=== PATIENT | male | born 1975 | race Caucasian/White ===

== ENCOUNTER 2017-12-05 18:07 | Inpatient (IN) | payer OTHER ==
[2017-12-05 18:36] VITALS: BMI 19.6
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
[2017-12-05] MEDS ORDERED: ACETAMINOPHEN 325 MG TABLET (FP) PO PRN (21:59)
[2017-12-05] MEDS ORDERED: MAGNESIUM HYDROX 2400MG/30ML ORAL SUSPENSION 30 ML CUP PO PRN (21:59)
[2017-12-05] MEDS ORDERED: chlordiazePOXIDE HCL 25 MG CAPSULE PO PRN (21:59)
[2017-12-05] MEDS ORDERED: LOPERAMIDE HCL 2 MG CAPSULE PO PRN (21:59)
[2017-12-05] MEDS ORDERED: MAGNESIUM CITRATE 300 ML BOTTLE PO PRN (21:59)
[2017-12-05] MEDS ORDERED: NICOTINE POLACRILEX 2 MG GUM BC PRN (21:59)
[2017-12-05] MEDS ORDERED: guaiFENesin/D-METHORPHAN HB 10 ML UNIT-DOSE CUPS PO PRN (21:59)
[2017-12-05] MEDS ORDERED: MAG HYDROX/AL HYDROX/SIMETH 30 ML UNIT-DOSE CUP PO PRN (21:59)
[2017-12-05] MEDS ORDERED: P-EPHED 60MG/TRIPROLIDI 2.5MG TABLET PO PRN (21:59)
[2017-12-05] MEDS ORDERED: MENTHOL/PHENOL 1 EACH UD MM PRN (21:59)
[2017-12-05] MEDS ORDERED: IBUPROFEN 400 MG TABLET (FP) PO PRN (21:59)
[2017-12-05] MEDS ORDERED: chlordiazePOXIDE HCL 25 MG CAPSULE PO SCH (23:00)
[2017-12-06] MEDS ORDERED: chlordiazePOXIDE HCL 25 MG CAPSULE PO PRN (00:37)
[2017-12-06] MEDS ORDERED: chlordiazePOXIDE HCL 25 MG CAPSULE PO ONE (01:00)
[2017-12-06] MEDS: MELATONIN 5 MG TABLETS PO PRN ×2 (02:02→22:16)
[2017-12-06] MEDS: THIAMINE HCL 100 MG TABLET (FP) PO SCH ×2 (02:08→22:15)
[2017-12-06] MEDS: chlordiazePOXIDE HCL 25 MG CAPSULE PO SCH ×4 (05:13→22:15)
[2017-12-06 10:17] LABS: ALBUMIN 3.4 g/dl (3.4-5.0); ALK PHOS 55 U/L (45-117); ANION GAP 2 MMOL/L (8-16); BILIRUBIN,TOTAL 0.8 mg/dL (0.2-1); BLOOD UREA NITROGEN 14 mg/dL (7-18); CALCIUM 8.8 mg/dL (8.5-10.1); CHLORIDE 107 mmol/L (98-107); CO2 31 mmol/L (21-32); GLUCOSE,RANDOM 95 mg/dL (74-106); HEMATOCRIT 42.6 % (35.4-49); HEMOGLOBIN 14.5 GM/dL (11.7-16.9); MCH 31.3 pg (25.7-33.7); MCHC 33.9 g/dl (32.0-35.9); MEAN CELL VOLUME 92.3 fl (80-96); MEAN PLT VOLUME 8.2 fl (7.5-11.1); PLATELET COUNT 246 K/MM3 (134-434); POTASSIUM 4.1 mmol/L (3.5-5.1); RBC 4.62 M/mm3 (4.00-5.60); RDW 12.6 % (11.9-15.9); SGOT/AST 26 U/L (15-37); SGPT/ALT 45 U/L (13-61); SODIUM 140 mmol/L (136-145); TOT PROT 6.6 g/dl (6.4-8.2); WHITE BLOOD COUNT 7.2 K/mm3 (4.0-10.0)
[2017-12-06] MEDS: PRENATAL VITAMINS W/ FOLIC ACID TABLET (FP) PO SCH (11:04)
[2017-12-06] MEDS: NICOTINE 14 MG/24 HOURS TOPICAL PATCH TD SCH (11:04)
--- NOTE | 2017-12-06 11:08 | PN ---
S CIWA - CIWA Score Nausea/Vomitin-No Nausea/No Vomiting Muscle Tremors: 4-Moderate,w/Arms Extend Anxiety: 3 Agitation: 3 Paroxysmal Sweats: 3 Orientation: 0-Oriented Tacttile Disturbances: 0-None Auditory Disturbances: 0-None Visual Disturbances: 0-None Headache: 0-None Present CIWA-Ar Total Score: 13 BHS Progress Note (SOAP) Subjective: agitation anxiety sweats interrupted sleep Objective: 12/06/17 11:03 Vital Signs Temperature 97.7 F 12/06/17 09:42 Pulse Rate 90 12/06/17 09:42 Respiratory Rate 16 12/06/17 09:42 Blood Pressure 104/70 12/06/17 09:42 O2 Sat by Pulse Oximetry (%) Laboratory Tests 12/06/17 12/06/17 07:00 07:00 WBC 7.2 RBC 4.62 Hgb 14.5 Hct 42.6 MCV 92.3 MCH 31.3 MCHC 33.9 RDW 12.6 Plt Count 246 MPV 8.2 Sodium 140 Potassium 4.1 Chloride 107 Carbon Dioxide 31 Anion Gap 2 L BUN 14 Creatinine 1.0 Creat Clearance w eGFR > 60 Random Glucose 95 Calcium 8.8 Total Bilirubin 0.8 AST 26 ALT 45 Alkaline Phosphatase 55 Total Protein 6.6 Albumin 3.4 aaox3 ambulating no acute distress Assessment: 12/06/17 11:05 withdrawal sx Plan: continue detox increase fluids
--- NOTE | 2017-12-06 13:16 | EKG ---
Test Reason : Blood Pressure : / mmHG Vent. Rate : 092 BPM Atrial Rate : 092 BPM P-R Int : 126 ms QRS Dur : 086 ms QT Int : 374 ms P-R-T Axes : 066 086 055 degrees QTc Int : 462 ms NORMAL SINUS RHYTHM NORMAL ECG NO PREVIOUS ECGS AVAILABLE Confirmed by MD CRYSTAL, MANJIT ([id number]) on 12/06/2017 1:16:23 PM Referred By: Confirmed By:MANJIT ROJAS MD
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
[2017-12-06] MEDS: MIRTAZAPINE 15 MG TABLET (FP) PO SCH (22:15)
[2017-12-06] MEDS ORDERED: chlordiazePOXIDE HCL 25 MG CAPSULE PO SCH (23:00)
[2017-12-07] MEDS: chlordiazePOXIDE HCL 25 MG CAPSULE PO SCH ×4 (05:56→23:14)
--- NOTE | 2017-12-07 10:34 | PN ---
S CIWA - CIWA Score Nausea/Vomitin-No Nausea/No Vomiting Muscle Tremors: 3 Anxiety: 2 Agitation: 3 Paroxysmal Sweats: 3 Orientation: 0-Oriented Tacttile Disturbances: 0-None Auditory Disturbances: 0-None Visual Disturbances: 0-None Headache: 0-None Present CIWA-Ar Total Score: 11 BHS Progress Note (SOAP) Subjective: sleepy sweats irritable tooth is scraping side of tounge Objective: 12/07/17 10:32 Vital Signs Temperature 97.7 F 12/07/17 10:09 Pulse Rate 93 H 12/07/17 10:09 Respiratory Rate 18 12/07/17 10:09 Blood Pressure 133/79 12/07/17 10:09 O2 Sat by Pulse Oximetry (%) Laboratory Tests 12/06/17 12/06/17 12/06/17 07:00 07:00 07:00 WBC 7.2 RBC 4.62 Hgb 14.5 Hct 42.6 MCV 92.3 MCH 31.3 MCHC 33.9 RDW 12.6 Plt Count 246 MPV 8.2 Sodium 140 Potassium 4.1 Chloride 107 Carbon Dioxide 31 Anion Gap 2 L BUN 14 Creatinine 1.0 Creat Clearance w eGFR > 60 Random Glucose 95 Calcium 8.8 Total Bilirubin 0.8 AST 26 ALT 45 Alkaline Phosphatase 55 Total Protein 6.6 Albumin 3.4 RPR Titer Nonreactive aaox3 ambulating no acute distress Assessment: 12/07/17 10:34 withdrawal sx Plan: continue detox increase fluids lidocaine s/s ordered
[2017-12-07] MEDS: PRENATAL VITAMINS W/ FOLIC ACID TABLET (FP) PO SCH (11:03)
[2017-12-07] MEDS: NICOTINE 14 MG/24 HOURS TOPICAL PATCH TD SCH (11:03)
[2017-12-07] MEDS ORDERED: LIDOCAINE VISCOUS 2% ORAL/TOP 20 ML UNIT-DOSE CUP MM PRN (11:05)
[2017-12-07] MEDS ORDERED: chlordiazePOXIDE 5 MG CAPSULE PO SCH (23:00)
[2017-12-07] MEDS: THIAMINE HCL 100 MG TABLET (FP) PO SCH (23:14)
[2017-12-07] MEDS: MIRTAZAPINE 15 MG TABLET (FP) PO SCH (23:15)
[2017-12-08] MEDS: chlordiazePOXIDE 5 MG CAPSULE PO SCH ×4 (06:23→22:30)
[2017-12-08] MEDS: PRENATAL VITAMINS W/ FOLIC ACID TABLET (FP) PO SCH (10:27)
[2017-12-08] MEDS: NICOTINE 14 MG/24 HOURS TOPICAL PATCH TD SCH (10:27)
--- NOTE | 2017-12-08 11:05 | PN ---
BHS Progress Note (SOAP) Subjective: low back pain sweats irritable Objective: 12/08/17 11:04 Vital Signs Temperature 98.1 F 12/08/17 08:11 Pulse Rate 72 12/08/17 08:11 Respiratory Rate 18 12/08/17 08:11 Blood Pressure 128/86 12/08/17 08:11 O2 Sat by Pulse Oximetry (%) aaox3 ambulating no acute distress Assessment: 12/08/17 11:04 withdrawal sx Plan: continue detox increase fluids lidocaine patch flexiril 10mg prn
[2017-12-08] MEDS ORDERED: CYCLOBENZAPRINE HCL 10 MG TABLET (FP) PO PRN (11:09)
[2017-12-08] MEDS: LIDOCAINE 5% TOPICAL PATCH TP ONE ×2 (11:20→11:24)
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
[2017-12-08] MEDS ORDERED: LIDOCAINE PATCH REMOVAL MC SCH (22:00)
[2017-12-08] MEDS: THIAMINE HCL 100 MG TABLET (FP) PO SCH (22:30)
[2017-12-08] MEDS: MELATONIN 5 MG TABLETS PO PRN (22:31)
[2017-12-08] MEDS ORDERED: chlordiazePOXIDE HCL 10 MG CAPSULE PO SCH (23:00)
[2017-12-08] MEDS: MIRTAZAPINE 15 MG TABLET (FP) PO SCH (23:31)
[2017-12-09] MEDS: chlordiazePOXIDE HCL 10 MG CAPSULE PO SCH ×2 (06:52→10:35)
[2017-12-09] MEDS ORDERED: BACITRACIN 0.9 GM PACKET TP ONE (08:31)
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
--- NOTE | 2017-12-09 09:18 | DS ---
[facility] Detox Discharge Summary Admission Date: 12/05/17 Discharge Date: 12/09/17 - History Present History: Alcohol Dependence, Cannabis Dependence, Cocaine Dependence - Physical Exam Results Vital Signs: Vital Signs Temperature 98.2 F 12/09/17 08:14 Pulse Rate 84 12/09/17 08:14 Respiratory Rate 18 12/09/17 08:14 Blood Pressure 129/78 12/09/17 08:14 O2 Sat by Pulse Oximetry (%) - Treatment Hospital Course: Detox Protocol Followed, Detoxed Safely, Responded well, Discharged Condition Good, Rehab Referral Accepted - Medication Discharge Medications: Ambulatory Orders Fluoxetine HCl [Prozac -] 10 mg PO DAILY #30 capsule 01/12/16 Mirtazapine [Remeron -] 15 mg PO HS #30 tablet 01/12/16 - Diagnosis (1) Alcohol dependence with uncomplicated withdrawal Current Visit: Yes Status: Chronic (2) Substance induced mood disorder Current Visit: Yes Status: Acute (3) Substance induced mood disorder Current Visit: Yes Status: Acute (4) Substance-induced sleep disorder Current Visit: Yes Status: Acute (5) Anxiety Current Visit: Yes Status: Chronic (6) Asthma Current Visit: Yes Status: Chronic Qualifiers: Asthma complication type: uncomplicated (7) Cannabis dependence, uncomplicated Current Visit: Yes Status: Chronic (8) Cocaine dependence, uncomplicated Current Visit: Yes Status: Chronic (9) Depression Current Visit: Yes Status: Chronic Qualifiers: Depression Type: unspecified Qualified Code(s): F32.9 - Major depressive disorder, single episode, unspecified (10) HTN (hypertension) Current Visit: Yes Status: Chronic Qualifiers: Hypertension type: unspecified Qualified Code(s): I10 - Essential (primary ) hypertension (11) Hep C w/ coma, chronic Current Visit: Yes Status: Chronic (12) Lower back pain Current Visit: Yes Status: Chronic Qualifiers: Chronicity: chronic Back pain laterality: right Sciatica presence: with sciatica Sciatica laterality: sciatica of right side Qualified Code(s): M54.41 - Lumbago with sciatica, right side; G89.29 - Other chronic pain (13) Nicotine dependence Current Visit: Yes Status: Chronic Qualifiers: Nicotine product type: cigarettes Substance use status: uncomplicated Qualified Code(s): F17.210 - Nicotine dependence, cigarettes, uncomplicated (14) Cocaine-induced mood disorder Current Visit: No Status: Acute (15) Cocaine-induced sleep disorder Current Visit: No Status: Acute (16) Weight loss Current Visit: No Status: Suspected - AMA Did Patient Leave Against Medical Advice: No ([facility])
[2017-12-09] MEDS ORDERED: LIDOCAINE 5% TOPICAL PATCH TP SCH (10:00)
[2017-12-09] MEDS: NICOTINE 14 MG/24 HOURS TOPICAL PATCH TD SCH (10:33)
[2017-12-09] MEDS: PRENATAL VITAMINS W/ FOLIC ACID TABLET (FP) PO SCH (10:34)
[2017-12-09 13:39] VITALS: BP 131/75; PULSE 100; TEMP 98.8
[2017-12-09 14:27] LABS: URINE APPEARANCE CLOUDY; URINE BILIRUBIN NEGATIVE (<2.0 mg/dL); URINE COLOR YELLOW; URINE GLUCOSE (UA) NEGATIVE (NEGATIVE); URINE KETONE NEGATIVE (NEGATIVE); URINE LEUK ESTERASE NEGATIVE (NEGATIVE); URINE NITRITE NEGATIVE (NEGATIVE); URINE PROTEIN NEGATIVE (NEGATIVE); URINE UROBILINOGEN NEGATIVE mg/dL (0.2-1.0)
== END 2017-12-09 15:38 | disposition home or self-care (01) | DRG 774 ==
LOC: YASAS 18:07 → Y6N 22:29
PROC: HZ2ZZZZ Detoxification Services for Substance Abuse Treatment (ICD-10-PCS; principal; 2017-12-05)
DX: F10.230 Alcohol dependence with withdrawal, uncomplicated (principal); F14.24 Cocaine dependence with cocaine-induced mood disorder; F14.282 Cocaine dependence with cocaine-induced sleep disorder; F12.20 Cannabis dependence, uncomplicated; F17.210 Nicotine dependence, cigarettes, uncomplicated; F32.9 Major depressive disorder, single episode, unspecified; F41.9 Anxiety disorder, unspecified; I10 Essential (primary) hypertension; J45.909 Unspecified asthma, uncomplicated; B18.2 Chronic viral hepatitis C; M54.41 Lumbago with sciatica, right side; R00.0 Tachycardia, unspecified; Z88.6 Allergy status to analgesic agent; Z87.898 Personal history of other specified conditions; Z91.5 Personal history of self-harm; T76.21XA Adult sexual abuse, suspected, initial encounter
CPT/HCPCS: 36415; 80053; 81003; 85027; 86593; 93005; 93010

== ENCOUNTER 2019-04-23 12:48 | Inpatient (IN) | payer OTHER ==
--- NOTE | 2019-04-23 13:03 | BHS.RME ---
Substance Use & Tx History - Substance Use History Alcohol Substance amount: 1 pint Frequency of use: Daily Substance route: Oral Date of Last Use: 04/23/19 (5 am) Opiates (Heroin) Substance amount: 1 gram Frequency of use: Daily Substance route: Injection (ex: intravenous or skin popping) Date of Last Use: 04/19/19 Nicotine Substance amount: 1/2 pack Frequency of use: Daily Substance route: Smoking Date of Last Use: 04/23/19 Physical/Psych/Mental Status - Behavior General Behavior: Increased activity (restlessness, agitation) Eye Contact: Normal - Cooperativeness Cooperativeness: Cooperative - Thinking Thought Processes: Tight, Logical, Goal Directed Thought content: Future oriented - Physical Health Problems Is patient presently having any pain?: No Does patient presently have any injuries (include location): No Does patient currently have a fever: No Is patient : No COWS - Scale Resting Pulse: 1= AL 81-100 Sweatin=Flushed/Facial Moisture Restless Observation: 3= Extraneous Movement Pupil Size: 2= Moderately Dilated Bone or Joint Aches: 4=Acute Joint/Muscle Pain Runny Nose/ Eye Tearin= Runny Nose/Eyes GI Upset > 30mins: 2= Nausea/Diarrhea Tremor Observation: 2= Slight Tremor Visible Yawning Observation: 1= 1-2x During Session Anxiety or Irritability: 1=Feels Anxious/Irritable Goose Flesh Skin: 3=Piloerection COWS Score: 23 CIWA Nausea/Vomitin Muscle Tremors: 3 Anxiety: 4-Mod. Anxious/Guarded Agitation: 4-Moderately Restless Paroxysmal Sweats: 4-Forehead w/Sweat Beads Orientation: 3-Disoriented Date>2 days Tacttile Disturbances: 0-None Auditory Disturbances: 0-None Visual Disturbances: 0-None Headache: 0-None Present CIWA-Ar Total Score: 21
--- NOTE | 2019-04-23 13:49 | HP ---
COWS - Scale Resting Pulse: 1= MD 81-100 Sweatin=Flushed/Facial Moisture Restless Observation: 3= Extraneous Movement Pupil Size: 2= Moderately Dilated Bone or Joint Aches: 4=Acute Joint/Muscle Pain Runny Nose/ Eye Tearin= Runny Nose/Eyes GI Upset > 30mins: 2= Nausea/Diarrhea Tremor Observation: 2= Slight Tremor Visible Yawning Observation: 1= 1-2x During Session Anxiety or Irritability: 1=Feels Anxious/Irritable Goose Flesh Skin: 3=Piloerection COWS Score: 23 CIWA Score Nausea/Vomitin Muscle Tremors: 3 Anxiety: 4-Mod. Anxious/Guarded Agitation: 4-Moderately Restless Paroxysmal Sweats: 4-Forehead w/Sweat Beads Orientation: 3-Disoriented Date>2 days Tacttile Disturbances: 0-None Auditory Disturbances: 0-None Visual Disturbances: 0-None Headache: 0-None Present CIWA-Ar Total Score: 21 - Admission Criteria OASAS Guidelines: Admission for Medically Managed Detox: Requires at least one of the followin. CIWA greater than 12 2. Seizures within the past 24 hours 3. Delirium tremens within the past 24 hours 4. Hallucinations within the past 24 hours 5. Acute intervention needed for co occurring medical disorder 6. Acute intervention needed for co occurring psychiatric disorder 7. Severe withdrawal that cannot be handled at a lower level of care (continued vomiting, continued diarrhea, abnormal vital signs) requiring intravenous medication and/or fluids 8. Admitting History and Physical - Admission Chief Complaint: " I need to detox from all these chemicals inside of me and I can't do it on my own." History of Present Illness: 44 year old male with history of ELMER who had been with us in and then went on to rehab at [facility]' completed it, got and moved to [facility] but then relapsed 10 months thereafter. He started to use and his found out about it and he ran out of [place] and moved back to [facility] to clean himself up again. He attempted self detox but is now in sever withdrawals and cannot do it on his own. He is seeking detox now and then rehab so that he can become sober once again. Alcohol: 1 pint bodka plus beers daily, last drank 2 days ago started at age 18. He had blacked out 3 days ago and almost fell of the subway platform into the train tracks. Heroin: 1 gram daily now intravenously. Last used 4 days ago and started at the age of 40. He had an overdose 5 days ago and seen at [facility]. Nicotine: 1/2 pack per day started at age 19, smoked today. PMH: HCV untreated and diagnosed 1 year ago. L inguinal hernia, not incarcerated. Psurg: None Psych: Bipolar and Depression on no meds CIWA: 21 COWS: 23 He is homelss, poor support systems, poor judgment and has lost over 30 lbs weight. He qualifies for inpatient detox. - Smoking History Smoking history: Current every day smoker Have you smoked in the past 12 months: Yes Aproximately how many cigarettes per day: 5 - Alcohol/Substance Use Hx Alcohol Use: Yes Admission [facility] - [facility] Allergies/Adverse Reactions: Allergies Allergy/AdvReac Type Severity Reaction Status Date / Time aspirin Allergy Verified 12/05/17 23:01 Exam Limitations: No Limitations - Ebola screening Have you traveled outside of the country in the last 21 days: No Have you had contact with anyone from an Ebola affected area: No Have you been sick,other than usual withdrawal symptoms: No Do you have a fever: No - Review of Systems Constitutional: Chills, Diaphoresis, Unintentional Wgt. Loss EENT: reports: No Symptoms Reported Respiratory: reports: No Symptoms reported Cardiac: reports: No Symptoms Reported GI: reports: No Symptoms Reported, Abdominal cramping, Other (pain left lower quadrant) : reports: No Symptoms Reported Musculoskeletal: reports: No Symptoms Reported Integumentary: reports: No Symptoms Reported Neuro: reports: No Symptoms reported Endocrine: reports: No Symptoms Reported Hematology: reports: No Symptoms Reported Psychiatric: reports: Judgement Intact, Agitated, Anxious Other Systems: Reviewed and Negative Patient History - Patient Medical History Hx Anemia: No Hx Asthma: Yes (Not on medication) Hx Chronic Obstructive Pulmonary Disease (COPD): No Hx Cancer: No Hx Cardiac Disorders: No Hx Congestive Heart Failure: No Hx Hypertension: Yes (Not on medication) Hx Hypercholesterolemia: No Hx Pacemaker: No HX Cerebrovascular Accident: No Hx Seizures: No Hx Dementia: No Hx Diabetes: No Hx Gastrointestinal Disorders: No Hx Liver Disease: Yes (Hep C) Hx Genitourinary Disorders: No Hx Sexually Transmitted Disorders: No Hx Renal Disease (ESRD): No Hx Thyroid Disease: No Hx Human Immunodeficiency Virus (HIV): No Hx Hepatitis C: Yes (Not on medication) Hx Depression: Yes (Not on medication) Hx Suicide Attempt: Yes (Attempt in 2006, denies suicidal ideation at this time) Hx Bipolar Disorder: No Hx Schizophrenia: No - Patient Surgical History Past Surgical History: No Hx Neurologic Surgery: No Hx Cataract Extraction: No Hx Cardiac Surgery: No Hx Lung Surgery: No Hx Breast Surgery: No Hx Breast Biopsy: No Hx Abdominal Surgery: No Hx Appendectomy: No Hx Cholecystectomy: No Hx Genitourinary Surgery: No Hx Section: No Hx Orthopedic Surgery: No Anesthesia Reaction: No - PPD History Previous Implant?: Yes Documented Results: Negative w/o proof Implanted On Prior [facility] Admission?: Yes Date: 12/07/16 Results: negative PPD to be Administered?: Yes - Smoking Cessation Smoking history: Current every day smoker Have you smoked in the past 12 months: Yes Aproximately how many cigarettes per day: 10 Cigars Per Day: 0 Hx Chewing Tobacco Use: No Initiated information on smoking cessation: Yes 'Breaking Loose' booklet given: 04/23/19 - Substances abused Alcohol Substance route: Oral Frequency: Daily Amount used: 1 pint vodka and beers Age of first use: 18 Date of last use: 04/20/19 Heroin Substance route: Injection Frequency: Daily Amount used: 1 gram Age of first use: 40 Date of last use: 04/19/19 Admission Physical Exam [facility] - Physical General Appearance: Yes: Moderate Distress, Alcohol on Breath, Tremorous, Irritable, Sweating, Anxious HEENTM: Yes: EOMI, Hearing grossly Normal, Normal ENT Inspection, Normocephalic , Normal Voice, ALINE, Pharynx Normal, Tm's normal Respiratory: Yes: Chest Non-Tender, Lungs Clear, Normal Breath Sounds, No Respiratory Distress, No Accessory Muscle Use Neck: Yes: No masses,lesions,Nodules, Supple, Trachea in good position Breast: Yes: Within Normal Limits Cardiology: Yes: Regular Rhythm, Regular Rate, S1, S2 Abdominal: Yes: Non Tender, Flat, Soft, Increased Bowel Sounds Genitourinary: Yes: Within Normal Limits, Other (left indirect inguinal hernia but reducible) Back: Yes: Normal Inspection Musculoskeletal: Yes: full range of Motion, Gait Steady, Pelvis Stable Extremities: Yes: Normal Capillary Refill 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, Fully Oriented, Alert, Motor Strength 5/5, Normal Mood/Affect, Normal Response Integumentary: Yes: Normal Color, Warm Lymphatic: Yes: Within Normal Limits - Diagnostic (1) Substance-induced sleep disorder Current Visit: Yes Status: Acute (2) Alcohol dependence with uncomplicated withdrawal Current Visit: Yes Status: Chronic (3) Anxiety Current Visit: Yes Status: Chronic (4) Asthma Current Visit: Yes Status: Chronic Qualifiers: Asthma complication type: uncomplicated (5) Depression Current Visit: Yes Status: Chronic Qualifiers: Depression Type: unspecified Qualified Code(s): F32.9 - Major depressive disorder, single episode, unspecified (6) HTN (hypertension) Current Visit: Yes Status: Chronic Qualifiers: Hypertension type: unspecified Qualified Code(s): I10 - Essential (primary ) hypertension (7) Nicotine dependence Current Visit: Yes Status: Chronic Qualifiers: Nicotine product type: cigarettes Substance use status: uncomplicated Qualified Code(s): F17.210 - Nicotine dependence, cigarettes, uncomplicated (8) Weight loss Current Visit: Yes Status: Suspected Comment: [facility] FOOD Cleared for Admission [facility] - Detox or Rehab [facility] Level of Care: Medically Managed Detox Regimen/Protocol: Methadone/Librium Claeared for Rehab Admission: No Screened but not Admitted - Documentation of Visit Screened but not Admitted: No Breathalyzer - Breathalyzer Breathalyzer: 0.015 Urine Drug Screen - Test Device Lot number: [id number] Expiration date: 01/20/21 - Control Is test valid?: Yes - Results Drug screen NEGATIVE: Yes Urine drug screen results: THC-Marijuana, JENNIFER-Cocaine Inpatient Rehab Admission - Rehab Decision to Admit Inpatient rehab admission?: No
[2019-04-23] MEDS ORDERED: chlordiazePOXIDE HCL 25 MG CAPSULE PO PRN (13:56)
[2019-04-23] MEDS ORDERED: NICOTINE POLACRILEX 2 MG GUM BUC PRN (13:56)
[2019-04-23] MEDS ORDERED: MAGNESIUM HYDROX 2400MG/30ML ORAL SUSPENSION 30 ML CUP PO PRN (13:56)
[2019-04-23] MEDS ORDERED: MAGNESIUM CITRATE 300 ML BOTTLE PO PRN (13:56)
[2019-04-23] MEDS ORDERED: MENTHOL/PHENOL 1 EACH UD MM PRN (13:56)
[2019-04-23] MEDS ORDERED: ACETAMINOPHEN 325 MG TABLET (FP) PO PRN ×2 (13:56)
[2019-04-23] MEDS ORDERED: cloNIDine HCL 0.1 MG TABLET PO PRN (13:56)
[2019-04-23] MEDS ORDERED: MAG HYDROX/AL HYDROX/SIMETH 30 ML UNIT-DOSE CUP PO PRN (13:56)
[2019-04-23] MEDS ORDERED: METHADONE HCL 10 MG TABLET (FOR DETOX USE ONLY) PO ONE (15:00)
[2019-04-23] MEDS ORDERED: ONDANSETRON *ODT* 4 MG TABLET SL ONE (15:00)
--- NOTE | 2019-04-23 15:18 | CONSULT ---
[facility] Psychiatric Consult - Data Date of interview: 04/23/19 Admission source: [facility] Identifying data: Revisit to [facility] and admission to [address] [place] [address] for this 44 y/o male self-referred for detoxification treatment. ELMER issues : heroin, cocaine, cannabis, nicotine, alcohol. Patient is single, father of two, domiciled and currently employed (self-report). Substance Abuse History: Discused with the patient. Details in current [facility] report as follows : Smoking history: Current every day smoker. Have you smoked in the past 12 months: Yes. Aproximately how many cigarettes per day: 10. Cigars Per Day: 0. Hx Chewing Tobacco Use: No. Initiated information on smoking cessation: Yes. 'Breaking Loose' booklet given: 04/23/19. - Substances abused. Alcohol. Substance route: Oral. Frequency: Daily. Amount used: 1 pint vodka and beers. Age of first use: 18. Date of last use: 04/20/19. Heroin. Substance route: Injection. Frequency: Daily. Amount used: 1 gram. Age of first use: 40. Date of last use: 04/19/19 Medical History: Medical profile is remarkable for hepatitis C, bronchial asthma , hypertension and left inguinal hernia. Noted report of allergy to ASA. Psychiatric History: Distant history of one psychiatric hospitalization, in [facility], for depression + suicidal ideation (age 15). Patient reports that he has been diagnosed with ADHD, MDD, Anxiety Disorder and prescribed, over the years, various medications (depakote, mirtazapine, sertraline, clonazepam, methylphenidate, fluoxetine and other unnamed molecules). Mr Rivas states that he has been seeing a psychiatrist in [place] (every three months). He admits to sporadic contacts with psychiatric care providers (lost to follow-up for at least six months, as per self-report). In this interview, the patient denies history of suicide attempts. Physical/Sexual Abuse/Trauma History: Patient denies history of abuse. Additional Comment: Urine drug screen results: THC-Marijuana, JENNIFER-Cocaine. Noted. Mental Status Exam - Mental Status Exam Alert and Oriented to: Time, Place, Person Cognitive Function: Good Patient Appearance: Unkempt, Disheveled Mood: Nervous, Withdrawn Affect: Mood Congruent, Constricted Patient Behavior: Fatigued, Appropriate, Cooperative Speech Pattern: Clear, Appropriate Voice Loudness: Normal Thought Process: Goal Oriented Thought Disorder: Not Present Hallucinations: Denies Suicidal Ideation: Denies Homicidal Ideation: Denies Insight/Judgement: Poor Sleep: Fair Appetite: Good Gait/Station: Normal Psychiatric Findings - Problem List ([place]irard 1, 2,3) (1) Alcohol dependence with uncomplicated withdrawal Current Visit: Yes Status: Acute (2) Opioid use disorder Current Visit: Yes Status: Chronic (3) Cocaine dependence, uncomplicated Current Visit: Yes Status: Chronic (4) Cannabis dependence, uncomplicated Current Visit: Yes Status: Chronic (5) Nicotine dependence Current Visit: Yes Status: Chronic Qualifiers: Nicotine product type: cigarettes Substance use status: uncomplicated Qualified Code(s): F17.210 - Nicotine dependence, cigarettes, uncomplicated (6) Substance induced mood disorder Current Visit: Yes Status: Chronic (7) Non-compliance Current Visit: Yes Status: Chronic Comment: With psychiatric OPD care. - Initial Treatment Plan Initial Treatment Plan: Psychoeducation. Sleep hygiene. Detoxification. Support. AA/NA meetings. Patient declines to resume psychotropic medications with the exception of drugs indicated for detoxification protocol (alcohol/ opioid withdrawals). Observation.
[2019-04-23] MEDS: chlordiazePOXIDE HCL 25 MG CAPSULE PO SCH ×3 (16:24→22:24)
[2019-04-23] MEDS: hydrOXYzine PAMOATE 25 MG CAPSULE (FP) PO SCH ×3 (16:30→22:24)
[2019-04-23 17:16] LABS: HEMATOCRIT 41.5 % (35.4-49); HEMOGLOBIN 14.2 GM/dL (11.7-16.9); MCH 32.1 pg (25.7-33.7); MCHC 34.2 g/dl (32.0-35.9); MEAN CELL VOLUME 93.7 fl (80-96); MEAN PLT VOLUME 8.3 fl (7.5-11.1); PLATELET COUNT 269 K/MM3 (134-434); RBC 4.43 M/mm3 (4.00-5.60); RDW 13.3 % (11.9-15.9)
[2019-04-23 17:20] LABS: ALBUMIN 3.5 g/dl (3.4-5.0); BILIRUBIN,TOTAL 0.8 mg/dL (0.2-1); BLOOD UREA NITROGEN 12.9 mg/dL (7-18); CALCIUM 8.5 mg/dL (8.5-10.1); CREATININE 0.9 mg/dL (0.55-1.3); POTASSIUM 3.2 mmol/L (3.5-5.1); TOT PROT 6.7 g/dl (6.4-8.2)
[2019-04-23] MEDS: THIAMINE HCL 100 MG TABLET (FP) PO SCH (22:24)
[2019-04-23] MEDS: MELATONIN 5 MG TABLETS PO SCH (22:24)
[2019-04-24] MEDS: hydrOXYzine PAMOATE 25 MG CAPSULE (FP) PO SCH ×5 (06:50→22:28)
[2019-04-24] MEDS: chlordiazePOXIDE HCL 25 MG CAPSULE PO SCH ×4 (06:50→22:25)
[2019-04-24] MEDS ORDERED: METHADONE HCL 5 MG TABLET (FOR DETOX USE ONLY) ONE (09:36)
[2019-04-24] MEDS ORDERED: METHADONE HCL 10 MG TABLET (FOR DETOX USE ONLY) ONE (09:36)
[2019-04-24] MEDS ORDERED: METHADONE (DETOX) 20 MG, METHADONE (DETOX) 5 MG PO ONE (10:00)
--- NOTE | 2019-04-24 10:06 | PN ---
S CIWA - CIWA Score Nausea/Vomitin Muscle Tremors: 4-Moderate,w/Arms Extend Anxiety: 4-Mod. Anxious/Guarded Agitation: 1-Slight > Activity Paroxysmal Sweats: 2 Orientation: 0-Oriented Tacttile Disturbances: 1-Very Mild Itch/Numbness Auditory Disturbances: 0-None Visual Disturbances: 2-Mild Sensitivity Headache: 2-Mild CIWA-Ar Total Score: 18 BHS COWS - Scale Resting Pulse: 1= [place] 81-100 Sweatin= Chills/Flushing Restless Observation: 0= Sits Still Pupil Size: 1= Pupils >than Normal Bone or Joint Aches: 2= Severe Diffuse Aches Runny Nose/ Eye Tearin= Nasal Congestion GI Upset > 30mins: 2= Nausea/Diarrhea Tremor Observation of Outstretched Hands: 2= Slight Tremor Visible Yawning Observation: 1= 1-2x During Session Anxiety or Irritability: 2=Irritable/Anxious Goose Flesh Skin: 3=Piloerection COWS Score: 16 BHS Progress Note (SOAP) Subjective: 44 years old male admitted on 04/23/19 for alcohol and opiate withdrawal sx management treating with librium and methadone detox regiments tired resting in bed limited conversation with staff Objective: 04/24/19 10:07 Vital Signs Temperature 98.0 F 04/24/19 09:16 Pulse Rate 84 04/24/19 09:16 Respiratory Rate 18 04/24/19 09:16 Blood Pressure 115/84 04/24/19 09:16 O2 Sat by Pulse Oximetry (%) Laboratory Last Values WBC 9.0 K/mm3 (4.0-10.0) 04/23/19 14:00 RBC 4.43 M/mm3 (4.00-5.60) 04/23/19 14:00 Hgb 14.2 GM/dL (11.7-16.9) 04/23/19 14:00 Hct 41.5 % (35.4-49) 04/23/19 14:00 MCV 93.7 fl (80-96) 04/23/19 14:00 MCH 32.1 pg (25.7-33.7) 04/23/19 14:00 MCHC 34.2 g/dl (32.0-35.9) 04/23/19 14:00 RDW 13.3 % (11.9-15.9) 04/23/19 14:00 Plt Count 269 K/MM3 (134-434) 04/23/19 14:00 MPV 8.3 fl (7.5-11.1) 04/23/19 14:00 Sodium 140 mmol/L (136-145) 04/23/19 14:00 Potassium 3.2 mmol/L (3.5-5.1) L 04/23/19 14:00 Chloride 109 mmol/L (98-107) H 04/23/19 14:00 Carbon Dioxide 25 mmol/L (21-32) 04/23/19 14:00 Anion Gap 6 MMOL/L (8-16) L 04/23/19 14:00 BUN 12.9 mg/dL (7-18) 04/23/19 14:00 Creatinine 0.9 mg/dL (0.55-1.3) 04/23/19 14:00 Est GFR (CKD-EPI)AfAm 119.97 04/23/19 14:00 Est GFR (CKD-EPI)NonAf 103.51 04/23/19 14:00 Random Glucose 120 mg/dL (74-106) H 04/23/19 14:00 Calcium 8.5 mg/dL (8.5-10.1) 04/23/19 14:00 Total Bilirubin 0.8 mg/dL (0.2-1) 04/23/19 14:00 AST 38 U/L (15-37) H 04/23/19 14:00 ALT 67 U/L (13-61) H 04/23/19 14:00 Alkaline Phosphatase 60 U/L (45-117) 04/23/19 14:00 Total Protein 6.7 g/dl (6.4-8.2) 04/23/19 14:00 Albumin 3.5 g/dl (3.4-5.0) 04/23/19 14:00 RPR Titer Nonreactive (NONREACTIVE) 04/23/19 14:00 lab noted Assessment: 04/24/19 10:07 alcohol and opiate withdrawal Plan: librium and methadone regiments
[2019-04-24] MEDS: NICOTINE 7 MG/24 HOURS TOPICAL PATCH TD SCH (10:07)
[2019-04-24] MEDS: PRENATAL VITAMINS W/ FOLIC ACID TABLET (FP) PO SCH (10:07)
--- NOTE | 2019-04-24 20:11 | PN ---
[facility] Progress Note Note: Patient complained of diarrhea x 2 Vital Signs Temperature 97.1 F L 04/24/19 16:37 Pulse Rate 65 04/24/19 16:37 Respiratory Rate 16 04/24/19 16:37 Blood Pressure 128/68 04/24/19 16:37 O2 Sat by Pulse Oximetry (%) Action: Loperamide HCL 4mg Q6H oral prn ordered
[2019-04-24] MEDS: LOPERAMIDE HCL 2 MG CAPSULE PO PRN (20:17)
[2019-04-24] MEDS: MELATONIN 5 MG TABLETS PO SCH (22:24)
[2019-04-24] MEDS: THIAMINE HCL 100 MG TABLET (FP) PO SCH (22:24)
[2019-04-25] MEDS: hydrOXYzine PAMOATE 25 MG CAPSULE (FP) PO SCH ×5 (05:44→22:14)
[2019-04-25] MEDS: chlordiazePOXIDE HCL 25 MG CAPSULE PO SCH ×4 (05:45→22:14)
[2019-04-25] MEDS: LOPERAMIDE HCL 2 MG CAPSULE PO PRN (05:51)
--- NOTE | 2019-04-25 09:55 | PN ---
[facility] CIWA - CIWA Score Nausea/Vomitin-Mild Nausea/No Vomiting Muscle Tremors: 3 Anxiety: 4-Mod. Anxious/Guarded Agitation: 2 Paroxysmal Sweats: 1-Minimal Palms Moist Orientation: 0-Oriented Tacttile Disturbances: 0-None Auditory Disturbances: 0-None Visual Disturbances: 2-Mild Sensitivity Headache: 0-None Present CIWA-Ar Total Score: 13 BHS COWS - Scale Resting Pulse: 1= [place] 81-100 Sweatin= Chills/Flushing Restless Observation: 0= Sits Still Pupil Size: 1= Pupils >than Normal Bone or Joint Aches: 1= Mild Discomfort Runny Nose/ Eye Tearin= Runny Nose/Eyes GI Upset > 30mins: 2= Nausea/Diarrhea (no diarrhea today) Tremor Observation of Outstretched Hands: 2= Slight Tremor Visible Yawning Observation: 2= >3x During Session Anxiety or Irritability: 2=Irritable/Anxious Goose Flesh Skin: 0=Smooth Skin COWS Score: 14 S Progress Note (SOAP) Subjective: 44 years old male admitted on 04/23/19 for alcohol and opiate withdrawal sx management treating with librium and methadone detox regiment feeling ok today ate breakfast resting in bed denies diarrhea today but mild abdominal cramp Objective: 04/25/19 09:53 Vital Signs Temperature 97.3 F L 04/25/19 08:44 Pulse Rate 84 04/25/19 08:44 Respiratory Rate 18 04/25/19 08:44 Blood Pressure 99/68 04/25/19 08:44 O2 Sat by Pulse Oximetry (%) Laboratory Last Values WBC 9.0 K/mm3 (4.0-10.0) 04/23/19 14:00 RBC 4.43 M/mm3 (4.00-5.60) 04/23/19 14:00 Hgb 14.2 GM/dL (11.7-16.9) 04/23/19 14:00 Hct 41.5 % (35.4-49) 04/23/19 14:00 MCV 93.7 fl (80-96) 04/23/19 14:00 MCH 32.1 pg (25.7-33.7) 04/23/19 14:00 MCHC 34.2 g/dl (32.0-35.9) 04/23/19 14:00 RDW 13.3 % (11.9-15.9) 04/23/19 14:00 Plt Count 269 K/MM3 (134-434) 04/23/19 14:00 MPV 8.3 fl (7.5-11.1) 04/23/19 14:00 Sodium 140 mmol/L (136-145) 04/23/19 14:00 Potassium 3.2 mmol/L (3.5-5.1) L 04/23/19 14:00 Chloride 109 mmol/L (98-107) H 04/23/19 14:00 Carbon Dioxide 25 mmol/L (21-32) 04/23/19 14:00 Anion Gap 6 MMOL/L (8-16) L 04/23/19 14:00 BUN 12.9 mg/dL (7-18) 04/23/19 14:00 Creatinine 0.9 mg/dL (0.55-1.3) 04/23/19 14:00 Est GFR (CKD-EPI)AfAm 119.97 04/23/19 14:00 Est GFR (CKD-EPI)NonAf 103.51 04/23/19 14:00 Random Glucose 120 mg/dL (74-106) H 04/23/19 14:00 Calcium 8.5 mg/dL (8.5-10.1) 04/23/19 14:00 Total Bilirubin 0.8 mg/dL (0.2-1) 04/23/19 14:00 AST 38 U/L (15-37) H 04/23/19 14:00 ALT 67 U/L (13-61) H 04/23/19 14:00 Alkaline Phosphatase 60 U/L (45-117) 04/23/19 14:00 Total Protein 6.7 g/dl (6.4-8.2) 04/23/19 14:00 Albumin 3.5 g/dl (3.4-5.0) 04/23/19 14:00 RPR Titer Nonreactive (NONREACTIVE) 04/23/19 14:00 lab noted 04/25/19 09:55 potassium 20 meq x 2 repeat K+ serum level Assessment: 04/25/19 09:56 alcohol and opiate withdrawal Plan: librium and methadone regiments
[2019-04-25] MEDS ORDERED: METHADONE HCL 10 MG TABLET (FOR DETOX USE ONLY) PO ONE (10:00)
[2019-04-25] MEDS: PRENATAL VITAMINS W/ FOLIC ACID TABLET (FP) PO SCH (10:13)
[2019-04-25] MEDS: NICOTINE 7 MG/24 HOURS TOPICAL PATCH TD SCH (10:14)
[2019-04-25] MEDS: POTASSIUM CHLORIDE ORAL LIQUID 20 MEQ/15 ML PO SCH ×2 (10:33→13:57)
[2019-04-25] MEDS: METHOCARBAMOL 500 MG TABLET PO PRN (14:51)
[2019-04-25] MEDS: MELATONIN 5 MG TABLETS PO SCH (22:14)
[2019-04-25] MEDS: THIAMINE HCL 100 MG TABLET (FP) PO SCH (22:14)
[2019-04-26] MEDS ORDERED: chlordiazePOXIDE HCL 10 MG CAPSULE PO PRN
[2019-04-26] MEDS: chlordiazePOXIDE HCL 10 MG CAPSULE PO SCH ×4 (05:50→22:11)
[2019-04-26] MEDS: hydrOXYzine PAMOATE 25 MG CAPSULE (FP) PO SCH ×5 (05:50→22:10)
[2019-04-26] MEDS ORDERED: METHADONE HCL 5 MG TABLET (FOR DETOX USE ONLY) ONE (08:48)
[2019-04-26] MEDS ORDERED: METHADONE HCL 10 MG TABLET (FOR DETOX USE ONLY) ONE (08:48)
[2019-04-26] MEDS ORDERED: METHADONE (DETOX) 10 MG, METHADONE (DETOX) 5 MG PO ONE (10:00)
[2019-04-26] MEDS: PRENATAL VITAMINS W/ FOLIC ACID TABLET (FP) PO SCH (10:19)
[2019-04-26] MEDS: NICOTINE 7 MG/24 HOURS TOPICAL PATCH TD SCH (10:20)
[2019-04-26] MEDS: POTASSIUM CHLORIDE ORAL LIQUID 20 MEQ/15 ML PO SCH ×2 (10:20→13:54)
--- NOTE | 2019-04-26 14:07 | PN ---
[facility] CIWA - CIWA Score Nausea/Vomitin-No Nausea/No Vomiting Muscle Tremors: 3 Anxiety: 3 Agitation: 1-Slight > Activity Paroxysmal Sweats: 2 Orientation: 0-Oriented Tacttile Disturbances: 0-None Auditory Disturbances: 0-None Visual Disturbances: 0-None Headache: 0-None Present CIWA-Ar Total Score: 9 BHS COWS - Scale Resting Pulse: 0= [place] 80 or Below Sweatin= Chills/Flushing Restless Observation: 0= Sits Still Pupil Size: 1= Pupils >than Normal Bone or Joint Aches: 1= Mild Discomfort Runny Nose/ Eye Tearin= Runny Nose/Eyes GI Upset > 30mins: 1= Stomach Cramp Tremor Observation of Outstretched Hands: 2= Slight Tremor Visible Yawning Observation: 1= 1-2x During Session Anxiety or Irritability: 1=Feels Anxious/Irritable Goose Flesh Skin: 0=Smooth Skin COWS Score: 10 S Progress Note (SOAP) Subjective: 44 years old male admitted on 04/23/19 for alcohol and opiate withdrawal sx management treating with librium detox regiment Mr Rivas is alert oriented x 3 no acute distress encourage to attend therapeutic groups and meetings as part of recovery Objective: 04/26/19 14:09 Vital Signs Temperature 97.7 F 04/26/19 12:45 Pulse Rate 72 04/26/19 12:45 Respiratory Rate 18 04/26/19 12:45 Blood Pressure 116/74 04/26/19 12:45 O2 Sat by Pulse Oximetry (%) Laboratory Last Values WBC 9.0 K/mm3 (4.0-10.0) 04/23/19 14:00 RBC 4.43 M/mm3 (4.00-5.60) 04/23/19 14:00 Hgb 14.2 GM/dL (11.7-16.9) 04/23/19 14:00 Hct 41.5 % (35.4-49) 04/23/19 14:00 MCV 93.7 fl (80-96) 04/23/19 14:00 MCH 32.1 pg (25.7-33.7) 04/23/19 14:00 MCHC 34.2 g/dl (32.0-35.9) 04/23/19 14:00 RDW 13.3 % (11.9-15.9) 04/23/19 14:00 Plt Count 269 K/MM3 (134-434) 04/23/19 14:00 MPV 8.3 fl (7.5-11.1) 04/23/19 14:00 Sodium 140 mmol/L (136-145) 04/23/19 14:00 Potassium 4.3 mmol/L (3.5-5.1) 04/26/19 09:00 Chloride 109 mmol/L (98-107) H 04/23/19 14:00 Carbon Dioxide 25 mmol/L (21-32) 04/23/19 14:00 Anion Gap 6 MMOL/L (8-16) L 04/23/19 14:00 BUN 12.9 mg/dL (7-18) 04/23/19 14:00 Creatinine 0.9 mg/dL (0.55-1.3) 04/23/19 14:00 Est GFR (CKD-EPI)AfAm 119.97 04/23/19 14:00 Est GFR (CKD-EPI)NonAf 103.51 04/23/19 14:00 Random Glucose 120 mg/dL (74-106) H 04/23/19 14:00 Calcium 8.5 mg/dL (8.5-10.1) 04/23/19 14:00 Total Bilirubin 0.8 mg/dL (0.2-1) 04/23/19 14:00 AST 38 U/L (15-37) H 04/23/19 14:00 ALT 67 U/L (13-61) H 04/23/19 14:00 Alkaline Phosphatase 60 U/L (45-117) 04/23/19 14:00 Total Protein 6.7 g/dl (6.4-8.2) 04/23/19 14:00 Albumin 3.5 g/dl (3.4-5.0) 04/23/19 14:00 RPR Titer Nonreactive (NONREACTIVE) 04/23/19 14:00 lab noted Assessment: 04/26/19 14:10 alcohol and opiate withdrawal Plan: librium and methadone regiments
[2019-04-26] MEDS: MELATONIN 5 MG TABLETS PO SCH (22:10)
[2019-04-26] MEDS: THIAMINE HCL 100 MG TABLET (FP) PO SCH (22:10)
[2019-04-26] MEDS: METHOCARBAMOL 500 MG TABLET PO PRN (23:32)
[2019-04-27] MEDS ORDERED: chlordiazePOXIDE HCL 10 MG CAPSULE PO SCH (05:00)
[2019-04-27] MEDS: hydrOXYzine PAMOATE 25 MG CAPSULE (FP) PO SCH (05:24)
[2019-04-27 06:24] VITALS: BP 110/74; PULSE 80; TEMP 98.3
[2019-04-27] MEDS ORDERED: METHADONE HCL 10 MG TABLET (FOR DETOX USE ONLY) PO ONE ×2 (08:15→10:00)
--- NOTE | 2019-04-27 11:52 | DS ---
[facility] Detox Discharge Summary Admission Date: 04/23/19 Discharge Date: 04/27/19 - History Present History: Alcohol Dependence, Opioid Dependence Additional Comments: Completed detox with Librium and Methadone protocols - Physical Exam Results Vital Signs: Vital Signs Temperature 98.3 F 04/27/19 06:23 Pulse Rate 80 04/27/19 06:23 Respiratory Rate 16 04/27/19 06:42 Blood Pressure 110/74 04/27/19 06:23 O2 Sat by Pulse Oximetry (%) Pertinent Admission Physical Exam Findings: PMH: untreated Hep C Psych: bipolar, depression PE Gnl: WDWN, in no distress MS: awake, alert, nl mentation Motor: nl Gait: steady - Treatment Hospital Course: Detox Protocol Followed, Detoxed Safely, Responded well, Discharged Condition Good, Rehab Referral Accepted - Medication Discharge Medications: Ambulatory Orders NK [No Known Home Medication] 04/23/19 - Diagnosis (1) Alcohol dependence with uncomplicated withdrawal Status: Acute (2) Opioid use disorder Status: Chronic - AMA Did Patient Leave Against Medical Advice: No
[2019-04-28] MEDS ORDERED: chlordiazePOXIDE HCL 10 MG CAPSULE PO ONE (05:00)
[2019-04-28] MEDS ORDERED: METHADONE HCL 5 MG TABLET (FOR DETOX USE ONLY) PO ONE (06:00)
== END 2019-04-27 08:40 | disposition other institution (70) | DRG 773 ==
LOC: YASAS 12:48 → Y3N 14:51
PROVIDERS: ADMIT Allergy & Immunology; ATTEND Allergy & Immunology
PROC: HZ2ZZZZ Detoxification Services for Substance Abuse Treatment (ICD-10-PCS; principal; 2019-04-23)
DX: F10.230 Alcohol dependence with withdrawal, uncomplicated (principal); F11.23 Opioid dependence with withdrawal; F14.20 Cocaine dependence, uncomplicated; F12.20 Cannabis dependence, uncomplicated; F17.210 Nicotine dependence, cigarettes, uncomplicated; F19.282 Other psychoactive substance dependence with psychoactive substance-induced sleep disorder; F19.24 Other psychoactive substance dependence with psychoactive substance-induced mood disorder; F31.9 Bipolar disorder, unspecified; F90.9 Attention-deficit hyperactivity disorder, unspecified type; B18.2 Chronic viral hepatitis C; E87.6 Hypokalemia; I10 Essential (primary) hypertension; J45.909 Unspecified asthma, uncomplicated; K40.90 Unilateral inguinal hernia, without obstruction or gangrene, not specified as recurrent; Z88.6 Allergy status to analgesic agent; Z91.5 Personal history of self-harm; Z91.19 Patient's noncompliance with other medical treatment and regimen
CPT/HCPCS: 36415; 80053; 84132; 85027; 86593; Q0162